=== PATIENT | female | born 1955 | race Caucasian/White ===

== ENCOUNTER 2017-12-10 08:27 | Emergency (ER) | payer OTHER, MEDICAID ==
[~2017-12-10] VITALS: Ht 157.5 cm; Wt 65.9 kg
[2017-12-10 08:31] VITALS: Ht 157.5 cm; Wt 65.9 kg
[2017-12-10 09:08] LABS: CALCIUM 8.4 mg/dL (8.5-10.1); CARBON DIOXIDE 31.6 mmol/L (21-32); CREATININE SERUM 1.1 mg/dL (0.6-1.0); POTASSIUM SERUM 4.3 mmol/L (3.5-5.1)
[2017-12-10 09:09] LABS: PLATELET COUNT 179 x10^3mcL (130-400); RED CELL DISTRIBUTION WIDTH 13.3 % (11.5-14.5)
[2017-12-10 09:13] LABS: ALBUMIN 3.7 g/dL (3.4-5.0); BILIRUBIN TOTAL 0.6 mg/dL (0.20-1.00); TOTAL PROTEIN, SERUM 7.1 g/dL (6.4-8.2)
[2017-12-10] MEDS ORDERED: KEPPRA1000 M1 PO (10:41)
[2017-12-10] MEDS ORDERED: LOSARTAN POTASS50 M1 PO (10:42)
[2017-12-10] MEDS ORDERED: LEVOTHYROXINE0.05 M2 PO (10:42)
[2017-12-10] MEDS ORDERED: SINGULAIR10 MG PO (10:43)
[2017-12-10] MEDS ORDERED: MULTI-VITAMINS1 TAB PO (10:44)
[2017-12-10] MEDS ORDERED: OYSCO 500500 M1 PO (10:45)
[2017-12-10] MEDS ORDERED: LORAZEPAM0.5 MG PO (10:46)
[2017-12-10] MEDS ORDERED: DILANTIN100 MG PO (10:48)
[2017-12-10] MEDS ORDERED: DEPAKOTE500 MG PO (10:49)
[2017-12-10 10:50] LABS: ATYPICAL LYMPH 2 %; BAND NEUTROPHIL 10 % (0-10); BASOPHIL 0 % (0-2); MONOCYTE 5 % (0-7); SEGMENTED NEUTROPHILS 78 % (37-75)
[2017-12-10] MEDS ORDERED: COLACE100 MG PO (10:50)
[2017-12-10 10:51] LABS: PLATELET MORPHOLOGY PLATELETS DECREASED; rbc morphology (normal/abnorm) ABNORMAL (NORMAL)
[2017-12-10] MEDS ORDERED: ESCITALOPRAM10 M1 PO (10:51)
[2017-12-10 11:35] VITALS: BP 118/72
== END 2017-12-10 11:35 | disposition home or self-care (01) ==
LOC: ED 08:27
PROVIDERS: Emergency Medicine
DX: G40.802 Other epilepsy, not intractable, without status epilepticus (principal); T62.8X1A Toxic effect of other specified noxious substances eaten as food, accidental (unintentional), initial encounter; S39.82XA Other specified injuries of lower back, initial encounter; E86.0 Dehydration; I10 Essential (primary) hypertension; Z90.721 Acquired absence of ovaries, unilateral; W19.XXXA Unspecified fall, initial encounter; Y93.89 Activity, other specified; Y99.8 Other external cause status; Y92.89 Other specified places as the place of occurrence of the external cause
CPT/HCPCS: J1885; J2060; J2405; J7030; Q0092

== ENCOUNTER 2018-03-02 10:50 | Inpatient (IN) | payer OTHER, MEDICAID ==
[~2018-03-02] VITALS: Ht 165.1 cm; Wt 65.5 kg
[~2018-03-02 10:50] MED LIST: COLACE100 MG PO; DEPAKOTE500 MG PO; DILANTIN100 MG PO; ESCITALOPRAM10 M1 PO; KEPPRA1000 M1 PO; LEVOTHYROXINE0.05 M2 PO; LORAZEPAM0.5 MG PO; LOSARTAN POTASS50 M1 PO; MULTI-VITAMINS1 TAB PO; OYSCO 500500 M1 PO; SINGULAIR10 MG PO
[2018-03-02 11:53] LABS: CALCIUM 9.4 mg/dL (8.5-10.1); CARBON DIOXIDE 32.4 mmol/L (21-32); CHLORIDE SERUM 102 mmol/L (98-107); CREATININE SERUM 0.9 mg/dL (0.6-1.0); GFR1 > 60 mL/min; GLUCOSE SERUM 95 mg/dL (74-106); POTASSIUM SERUM 4.9 mmol/L (3.5-5.1); SODIUM SERUM 140 mmol/L (136-145)
[2018-03-02 11:57] LABS: BASOPHIL % 0.2 % (0-2); PLATELET COUNT 155 x10^3mcL (130-400); RED CELL DISTRIBUTION WIDTH 13.3 % (11.5-14.5)
[2018-03-02 11:58] LABS: ALBUMIN 3.7 g/dL (3.4-5.0); ALKALINE PHOSPHATASE 98 U/L (46-116); ALT/SGPT 25 U/L (14-59); AST/SGOT 22 U/L (15-37); BILIRUBIN TOTAL 0.3 mg/dL (0.20-1.00); CHOLESTEROL 154 mg/dL (<200); MAGNESIUM 1.8 mg/dL (1.8-2.4); TOTAL PROTEIN, SERUM 6.9 g/dL (6.4-8.2)
[2018-03-02 11:59] LABS: HDL CHOLESTEROL 81 mg/dL (40-60)
[2018-03-02 12:17] LABS: microscopic required? NO
[2018-03-02 12:44] LABS: urine erythrocyte NEGATIVE (NEGATIVE)
[2018-03-02 12:53] LABS: AMPHETAMINE QUAL UR NONE DETECTED (NEG <=1000)
[2018-03-02] MEDS ORDERED: KEPPRA500 MG PO (13:17)
[2018-03-02] MEDS ORDERED: TIROSINT75 MC1 PO (13:17)
[2018-03-02] MEDS ORDERED: CYCLOBENZAPRINE5 MG PO (13:41)
[2018-03-02] MEDS ORDERED: KEPPRA750 MG PO (13:47)
[2018-03-02] MEDS ORDERED: LEVOTHYROXINE0.05 M2 PO (13:48)
[2018-03-02 14:36] VITALS: BP 157/86
[2018-03-02 14:50] LABS: T3 TOTAL 0.91 ng/mL
[2018-03-02 15:04] LABS: FREE T4 0.89 ng/dL (0.76-1.46); FREE THYROXINE INDEX 2.3 ug/dL (1.4-4.5); T4(THYROXINE) 6.7 ug/dL (4.7-13.3)
[2018-03-02 15:33] LABS: PHOSPHOROUS 4.2 mg/dL (2.5-4.9)
[2018-03-02 17:09] VITALS: BP 113/70
[2018-03-02 21:19] VITALS: BP 134/81
[2018-03-03 05:11] VITALS: BP 143/79
[2018-03-03 06:38] LABS: BASOPHIL % 0.4 % (0-2); PLATELET COUNT 166 x10^3mcL (130-400); RED CELL DISTRIBUTION WIDTH 13.2 % (11.5-14.5)
[2018-03-03 07:14] LABS: CALCIUM 8.3 mg/dL (8.5-10.1); CARBON DIOXIDE 31.7 mmol/L (21-32); CHLORIDE SERUM 106 mmol/L (98-107); CREATININE SERUM 0.7 mg/dL (0.6-1.0); GFR1 > 60 mL/min; GLUCOSE SERUM 87 mg/dL (74-106); MAGNESIUM 1.6 mg/dL (1.8-2.4); PHOSPHOROUS 3.9 mg/dL (2.5-4.9); POTASSIUM SERUM 4.5 mmol/L (3.5-5.1); SODIUM SERUM 142 mmol/L (136-145)
[2018-03-03 09:14] VITALS: BP 162/73
[2018-03-03 13:49] VITALS: BP 119/78
[2018-03-03 17:01] VITALS: BP 139/82
[2018-03-03 20:57] VITALS: BP 148/78
[2018-03-04 05:50] VITALS: BP 137/77
[2018-03-04 07:05] LABS: CALCIUM 7.9 mg/dL (8.5-10.1); CARBON DIOXIDE 30.4 mmol/L (21-32); CHLORIDE SERUM 106 mmol/L (98-107); CREATININE SERUM 0.7 mg/dL (0.6-1.0); GFR1 > 60 mL/min; GLUCOSE SERUM 84 mg/dL (74-106); MAGNESIUM 1.6 mg/dL (1.8-2.4); PHOSPHOROUS 2.9 mg/dL (2.5-4.9); SODIUM SERUM 138 mmol/L (136-145)
[2018-03-04 07:15] LABS: BASOPHIL % 0.4 % (0-2); PLATELET COUNT 138 x10^3mcL (130-400); RED CELL DISTRIBUTION WIDTH 12.9 % (11.5-14.5)
[2018-03-04 09:24] VITALS: BP 133/79
[2018-03-04 13:33] LABS: RED BLOOD CELLS 3.12 M/mm3 (4.10-5.10)
[2018-03-04 13:46] LABS: IRON 27 ug/dL (50-170); TOTAL IRON BINDING CAPACITY 148 ug/dL (250-450)
[2018-03-04 13:49] VITALS: BP 122/68
[2018-03-04 13:52] VITALS: BP 130/71
[2018-03-04 16:07] VITALS: BP 161/84
[2018-03-04 21:11] VITALS: BP 147/77
[2018-03-05 05:43] VITALS: BP 155/88
[2018-03-05 06:45] LABS: BASOPHIL % 0.4 % (0-2); PLATELET COUNT 138 x10^3mcL (130-400); RED CELL DISTRIBUTION WIDTH 12.5 % (11.5-14.5)
[2018-03-05 07:09] LABS: CALCIUM 8.2 mg/dL (8.5-10.1); CARBON DIOXIDE 33.7 mmol/L (21-32); CHLORIDE SERUM 107 mmol/L (98-107); CREATININE SERUM 0.6 mg/dL (0.6-1.0); GFR1 > 60 mL/min; GLUCOSE SERUM 93 mg/dL (74-106); MAGNESIUM 1.8 mg/dL (1.8-2.4); PHOSPHOROUS 2.4 mg/dL (2.5-4.9); POTASSIUM SERUM 4.1 mmol/L (3.5-5.1); SODIUM SERUM 144 mmol/L (136-145)
[2018-03-05 09:35] VITALS: BP 140/80
[2018-03-05 13:18] VITALS: BP 150/80
[2018-03-05 18:05] VITALS: BP 147/87
[2018-03-05 21:58] VITALS: BP 145/83
[2018-03-06 06:08] VITALS: BP 151/81
[2018-03-06 06:52] LABS: CHLORIDE SERUM 109 mmol/L (98-107); CREATININE SERUM 0.6 mg/dL (0.6-1.0); GFR1 > 60 mL/min; GLUCOSE SERUM 95 mg/dL (74-106); MAGNESIUM 1.7 mg/dL (1.8-2.4); PHOSPHOROUS 2.7 mg/dL (2.5-4.9); SODIUM SERUM 141 mmol/L (136-145)
[2018-03-06 06:53] LABS: BASOPHIL % 0.3 % (0-2); PLATELET COUNT 155 x10^3mcL (130-400); RED CELL DISTRIBUTION WIDTH 12.7 % (11.5-14.5)
[2018-03-06 09:26] VITALS: BP 165/85
[2018-03-06 11:36] VITALS: BP 148/85
[2018-03-06 12:31] VITALS: BP 147/83
[2018-03-06 14:22] VITALS: Ht 165.1 cm; Wt 65.5 kg
[2018-03-06 17:48] VITALS: BP 159/85
[2018-03-06 20:53] VITALS: BP 141/79
[2018-03-07 05:23] VITALS: BP 147/81
[2018-03-07 06:11] LABS: BASOPHIL % 0.1 % (0-2); PLATELET COUNT 163 x10^3mcL (130-400)
[2018-03-07 06:19] LABS: CALCIUM 8.3 mg/dL (8.5-10.1); CARBON DIOXIDE 31.8 mmol/L (21-32); CHLORIDE SERUM 109 mmol/L (98-107); CREATININE SERUM 0.6 mg/dL (0.6-1.0); GFR1 > 60 mL/min; GLUCOSE SERUM 88 mg/dL (74-106); MAGNESIUM 1.8 mg/dL (1.8-2.4); PHOSPHOROUS 3.6 mg/dL (2.5-4.9); POTASSIUM SERUM 4.2 mmol/L (3.5-5.1); SODIUM SERUM 146 mmol/L (136-145)
[2018-03-07 09:41] VITALS: BP 161/79
[2018-03-07] MEDS ORDERED: HEP5I SC (13:34)
[2018-03-07 17:36] VITALS: BP 145/79
== END 2018-03-07 19:32 | DRG 956 ==
LOC: ED 10:50 → DU 13:08 → MU 03-07 08:21
PROVIDERS: Emergency Medicine; Family Medicine; Neuromusculoskeletal Medicine, Sports Medicine; Student in an Organized Health Care Education/Training Program
PROC: 0QS704Z Reposition Left Upper Femur with Internal Fixation Device, Open Approach (ICD-10-PCS; principal; 2018-03-03 08:30)
DX: S72.012A Unspecified intracapsular fracture of left femur, initial encounter for closed fracture (principal); S32.591A Other specified fracture of right pubis, initial encounter for closed fracture; N17.0 Acute kidney failure with tubular necrosis; S22.019A Unspecified fracture of first thoracic vertebra, initial encounter for closed fracture; S22.029A Unspecified fracture of second thoracic vertebra, initial encounter for closed fracture; S32.592A Other specified fracture of left pubis, initial encounter for closed fracture; G40.909 Epilepsy, unspecified, not intractable, without status epilepticus; I10 Essential (primary) hypertension; E83.42 Hypomagnesemia; D53.1 Other megaloblastic anemias, not elsewhere classified; E03.9 Hypothyroidism, unspecified; J30.9 Allergic rhinitis, unspecified; F41.9 Anxiety disorder, unspecified; F32.9 Major depressive disorder, single episode, unspecified; F70 Mild intellectual disabilities; M06.9 Rheumatoid arthritis, unspecified; M81.0 Age-related osteoporosis without current pathological fracture; W19.XXXA Unspecified fall, initial encounter; Y92.210 Daycare center as the place of occurrence of the external cause
CPT/HCPCS: 83880; 84439; 94150; 97110-GP; 97116-GP; 97530-GP; C1713; G0480; J0690; J1644; J2175; J2250; J2270; J2405; J2704; J3010; J3475; J3490; J7030; J7120; Q0092

== ENCOUNTER 2018-04-24 07:32 | Emergency (ER) | payer OTHER ==
[~2018-04-24] VITALS: Ht 165.1 cm; Wt 65.3 kg
[~2018-04-24 07:32] MED LIST changes: +CYCLOBENZAPRINE5 MG PO; +HEP5I SC; +KEPPRA500 MG PO; +KEPPRA750 MG PO; +TIROSINT75 MC1 PO
[2018-04-24 07:35] VITALS: Ht 165.1 cm; Wt 65.3 kg
[2018-04-24 08:47] VITALS: BP 125/75
== END 2018-04-24 08:48 | disposition home or self-care (01) ==
LOC: ED 07:32
DX: S76.011A Strain of muscle, fascia and tendon of right hip, initial encounter (principal); I10 Essential (primary) hypertension; W01.0XXA Fall on same level from slipping, tripping and stumbling without subsequent striking against object, initial encounter; Y93.89 Activity, other specified; Y92.89 Other specified places as the place of occurrence of the external cause; Y99.8 Other external cause status

== ENCOUNTER → 2021-01-14 | Outpatient (CLI) | payer OTHER, MEDICAID ==
[2021-01-14 18:05] LABS: BASOPHIL % 0.8 % (0.2-1.3); RED CELL DISTRIBUTION WIDTH 14.1 % (12.3-17.7)
[2021-01-14 18:15] LABS: PLATELET COUNT 106 x10^3mcL (179-408)
[2021-01-14 18:27] LABS: BILIRUBIN TOTAL 0.3 mg/dL (0.20-1.00); CALCIUM 8.9 mg/dL (8.5-10.1); CARBON DIOXIDE 38.5 mmol/L (21-32); CREATININE SERUM 1.2 mg/dL (0.6-1.0); POTASSIUM SERUM 5.5 mmol/L (3.5-5.1); TOTAL PROTEIN, SERUM 6.3 g/dL (6.4-8.2)
[2021-01-14 18:28] LABS: ALBUMIN 2.8 g/dL (3.4-5.0)
== END | disposition home or self-care (01) ==
LOC: RD 17:32
PROVIDERS: ATTEND Family Medicine
DX: R10.84 Generalized abdominal pain (principal); R63.0 Anorexia; R53.83 Other fatigue